=== PATIENT | male | born 1995 | race African-American/Black ===

== ENCOUNTER 2017-01-30 12:18 | Emergency (ER) | payer SELFPAY ==
[2017-01-30 12:24] VITALS: BP 149/87; BMI 43.0
--- NOTE | 2017-01-30 13:09 | DR.EARACHE ---
HPI - Time Seen Time seen: 12:50 - PCP Primary Care Physician: YOVANY - HPI Comment HPI Comment: BELOW. - Complaint/Symptoms Chief Complaint Doctor Comments: HISTORY BELOW. CURRENTLY NO PAIN IN RT EAR. NO EAR DRAINAGE. NO FEVER.EXPOSURE TO HIGH FREQUENCY SOUND IN THE PAST. Chief Complaint:: OK C/O HAVING PAIN TO HIS RIGHT INNER SINCE THE , AND THAT HE CANNOT HEAR OUT OF IT AND THAT HE CAN STICK A Q TIP WAY DOWN IN IT.. PT C/O SOME DRAINAGE NOTED .. Self Treatment fo Chief Complaint: OTC EARDROPS.. - Nurses notes reviewed Nurses Notes Review: Yes - Source History Provided: Patient - Mode of arrival Mode of Arrival: Ambulatory - Timing Onset of Chief Complaint: 11/05/16 Came on: Suddenly - Duration Duration: Constant Duration: Days - Location Location: Right, Ear - Severity Severity: Severe - Context Context: denies: Other (HEARING LOSS RT EAR.) - Associated signs and symptoms Associated signs and symptoms: denies: Fever, Chills, Discharge, Sore throat, Runny nose, Toothache PMH - PMH Past Medical History: No Past Surgical History: No - Family History History of Family Medical Conditions: No Family Medical History: Diabetes Mellitus - Social History Does patient currently use any type of tobacco product: No Have you used tobacco products in the last 12 months: No Type of Tobacco Use: None Does any household member use tobacco: No Alcohol Use: None Do you use any recreational Drugs:: No Lives With: Family Lives Where: Home - infectious screening In the last 2 months have you had wt loss of >10#?: NO Have you had fever, night sweats or hemotysis?: No Have you traveled outside the country in the last 6 months?: No Isolation: Standard ROS - Review of Systems Constitutional: No Symptoms Reported. negative: Chills, Fever Eyes: No Symptoms Reported. negative: Eye Pain, Discharge ENTM: Hearing Loss (RT EAR.). negative: Nose Discharge, Nose Congestion, Throat Pain Respiratoy: No Symptoms Reported. negative: Productive Cough, Non-Productive Cough, Short of Breath, Wheezing, Hemoptysis Cardiovascular: No Symptoms Reported. negative: Chest Pain, Edema Gastrointestinal/Abdominal: No Symptoms Reported. negative: Abdominal Pain, Diarrhea, Nausea, Vomiting Genitourinary: No Symptoms Reported. negative: Dysuria, Frequency, Hematuria Neurological: Other (RT HEARING LOSS) Musculoskeletal: No Symptoms Reported Integumentary: No Symptoms Reported Hematologic/Lymphatic: No Symptoms Reported Endocrine: No Symptoms Reported All Other Systems: Reviewed and Negative PE - Vitals Vitals: Temperature 97.7 F Pulse Rate 66 Respiratory Rate 18 Blood Pressure 149/87 O2 Sat by Pulse Oximetry 97 - General Limitations: No Limitations General Appearance: Alert - Head Head Exam: Normal Inspection - Eyes Eye exam: Normal Appearance - ENT ENT Exam: Normal External Ear Exam External Ear Exam: Normal External Inspection TM/Canal Exam: Bilateral Normal Mouth Exam: Normal Inspection Teeth Exam: Normal Inspection Throat Exam: Normal Inspection - Neck Neck Exam Focused: Normal Inspection - Chest Chest Inspection: Symmetric Chest Wall Rise - Respiratory Respiratory Exam: Normal Lung Sounds Bilat Respiratory Exam: Bilateral Clear to Auscultation - Cardiovascular Cardiovascular Exam: Regular Rate, Normal Rhythm, Normal Heart Sounds - Abdominal Exam Abdominal Exam: Normal Bowel Sounds, Soft. negative: Tenderness - Extremities Extremities Exam: Normal Inspection - Back Back Exam: Normal Inspection - Neurological Neurological Exam: Alert, Oriented X3 - Psychiatric Psychiatric Exam: Normal Affect, Normal Mood - Skin Skin Exam: Normal Color MDM - Additional Information Additional Information Obtained From: Family - Differential Diagnosis Tympanic membrane: negative: Perforation (HEARING LOSS RT EAR.) Course - Treatment Treatment: SEE ORDERS - Education/Counseling Education/Counseling: Patient, Family, Education Educated On: Diagnosis, Needs for Follow Up - Diagnosis Discharge Problem: Hearing loss in right ear Qualifiers: Hearing loss type: unspecified Qualified Code(s): H91.91 - Unspecified hearing loss, right ear - Discharge Plan Condition: Stable - Follow ups/Referrals Follow ups/Referrals: [facility],None [Primary Care Provider] - 1 day STEPHEN MELGAR [REFERRING] - 1 day - Instructions Additional Instructions: YOU HAVE HEARING PROBLEM IN RIGHT EAR. YOU ARE REFER TO ENT DR FOR FURTHER EVALUATION. RETURN TO ED IF WORSE.
== END 2017-01-30 13:48 | disposition home or self-care (01) ==
LOC: ER 12:39
DX: H91.91 Unspecified hearing loss, right ear (principal)
CPT/HCPCS: 99281; 99282